=== PATIENT | male | born 1980 | race Caucasian/White ===

== ENCOUNTER 2022-05-22 02:58 | Emergency (ER) | payer BC ==
[~2022-05-22] VITALS: Ht 182.9 cm; Wt 93.0 kg
[2022-05-22] MEDS ORDERED: EMTR1TAB13 PO (03:16)
[2022-05-22] MEDS ORDERED: FINA1TAB PO (03:16)
[2022-05-22] MEDS ORDERED: ESCI5TAB PO (03:16)
--- NOTE | 2022-05-22 03:25 | NUR ---
Dr. Olivera at bedside for MSE.
[2022-05-22] MEDS ORDERED: ONDANSETRON ODT 4 MG TAB.RAPDIS SL ONE (03:30)
[2022-05-22] MEDS ORDERED: CYCLOBENZAPRINE HCL 10 MG TABLET PO ONE (03:30)
[2022-05-22] MEDS ORDERED: HYDROMORPHONE 1 MG/1 ML DISP.SYRIN IM ONE (03:30)
[2022-05-22] MEDS ORDERED: HYDROMORPHONE 2 MG/1 ML DISP.SYRIN ONE (03:32)
[2022-05-22] MEDS ORDERED: CYCLOBENZAPRINE HCL 10 MG TABLET ONE (03:32)
[2022-05-22] MEDS ORDERED: ONDANSETRON ODT 4 MG TAB.RAPDIS ONE (03:32)
[2022-05-22] MEDS ORDERED: HYDR-4209 PO (03:40)
[2022-05-22] MEDS ORDERED: CYCL10TA9 PO (03:40)
[2022-05-22] MEDS ORDERED: ONDA4TAB5 PO (03:40)
[2022-05-22 03:52] VITALS: BP 139/67
--- NOTE | 2022-05-22 03:52 | NUR ---
Patient discharged to home in stable condition. Written and verbal after care instructions given. Patient verbalizes understanding of instructions. Stressed follow up or return to ER for worsening s/s. Patient out of ER with steady gait, no acute signs of distress, VSS, all belongings taken.
== END 2022-05-22 03:52 | disposition home or self-care (01) ==
LOC: ER 02:58
DX: M62.838 Other muscle spasm (principal); G44.209 Tension-type headache, unspecified, not intractable; F32.A Depression, unspecified; Z79.899 Other long term (current) drug therapy
CPT/HCPCS: 99283; 96372; J1170; A4663; Q0162